=== PATIENT | male | born 1970 | race Caucasian/White ===

== ENCOUNTER 2016-03-22 14:19 | Observation (INO) ==
--- NOTE | 2016-03-22 14:36 | Emergency Department Note ---
Disposition Clinical Impression: Chest pain Qualifiers: Chest pain type: unspecified Qualified Code(s): R07.9 - Chest pain, unspecified Disposition: Admitted As Inpatient Condition: Good Chest Pain HPI - General Chief Complaint: ED Chest Pain Stated Complaint: Chest Pain/Anxiety Time Seen by Provider: 03/22/16 14:25 Source: patient Mode of arrival: ambulatory Limitations: no limitations Vital Signs Reviewed: Yes Nursing Notes Reviewed: Yes - History of Present Illness HPI Narrative: A 45 year old male with a history of type 2 DM, depression/anxiety, and HTN presents to the ED with the chief complaint of chest pain that began Sunday and an anxiety attack that occurred on Sunday. He states that the chest pain is in the center of his chest and radiates down his left arm and that his arm feels weak and shaky. He states that the chest pain gets worse with walking and gets better when he lays down and rests. He states he has some shortness of breath off and on. [facility]: Patient has past medical history of anxiety, panic disorder, hyperlipidemia, obesity, chest pain, obstructive sleep apnea, atypical chest pain, depressive disorder, hypertension, back pain, PTSD. Patient's blood work from 03/22/2016 shows a white blood cell count of 5.6, hemoglobin 15.4, hematocrit 44.4, platelets 176. Electrolytes show sodium of 138. Potassium 3.7. Cl 99. Glucose 313. CO2 26. Creatinine 1.13 with previous creatinine of 1.01 on 06/18. AST 36. ALC 81. Chest x-ray shows no evidence of acute pulmonary/cardiac disease. EKG shows sinus tachycardia with ventricular rate of 104. NE interval 148. QRS 88. QTC 460. Patient has no ST elevations or depressions. Patient has T-wave inversions in V1 and V2. EKG with changes since 11/07/2011. Medications include allopurinol. Lisinopril. Loratadine. Frank. Toprol. Nortriptyline. Omeprazole. Prazosin. - Related Data Home Medications Medication Instructions Recorded Confirmed Allopurinol [Zyloprim 300 MG] 300 mg PO DAILY 03/22/16 03/22/16 Lisinopril [Zestril] 40 mg PO DAILY 03/22/16 03/22/16 Loratadine [Claritin] 10 mg PO DAILY PRN 03/22/16 03/22/16 Metformin [Glucophage] 250 mg PO BID 03/22/16 03/22/16 Metoprolol [Lopressor] 12.5 mg PO BID 03/22/16 03/22/16 Multivitamin-Min/Iron/FA/Vit K 1 each PO DAILY 03/22/16 03/22/16 [Multi-Day Plus Minerals Tablet] Nortriptyline [Pamelor] 10 mg PO HS 03/22/16 03/22/16 Omeprazole [PriLOSEC] 20 mg PO DAILY 03/22/16 03/22/16 Prazosin HCl [Minipress] 10 mg PO HS 03/22/16 03/22/16 Allergies Allergy/AdvReac Type Severity Reaction Status Date / Time No Known Allergies Allergy Verified 03/22/16 15:19 All systems ED: reviewed and negative except as stated. Cardiovascular: Reports: chest pain Psychiatric: Reports: anxiety, depression Physical Exam - General Limitations: no limitations - Head Head exam: atraumatic, normocephalic - Eye Eye exam: Present: normal appearance - ENT ENT exam: normal exam - Neck Neck exam: Present: normal inspection - Chest Chest inspection: Present: normal inspection, symmetric chest wall rise. Absent : tenderness - Respiratory Respiratory exam: Present: normal lung sounds bilaterally. Absent: respiratory distress, wheezes - Cardiovascular Cardiovascular exam: Present: regular rate, normal rhythm - Abdominal Exam Abdominal exam: Present: soft, Non-Tender - Extremities Exam Extremities exam: Present: normal inspection - Expanded Lower Extremity Exam Hip/Pelvis exam: Present: normal inspection - Back Exam Back exam: Present: normal inspection - Neurological Exam Neurological exam: Present: alert, oriented X3 - Psychiatric Psychiatric exam: Present: anxious - Skin Skin exam: Present: warm, dry, intact Course - Consultations Consultation #1: Discussed with hospitalist Dr. Soler. Pt accepted. Vital Signs Temperature 98.7 F 03/22/16 14:22 Pulse Rate 84 03/22/16 14:22 Respiratory Rate 16 03/22/16 14:22 Blood Pressure 139/91 03/22/16 14:22 O2 Sat by Pulse Oximetry 98 03/22/16 14:22 Temperature 97.7 F 03/22/16 17:01 Pulse Rate 78 03/22/16 17:01 Respiratory Rate 16 03/22/16 17:01 Blood Pressure 138/87 03/22/16 17:01 O2 Sat by Pulse Oximetry 96 03/22/16 17:01 Oxygen Delivery Oxygen Delivery Room Air Chest Pain - Medical Records Medical records reviewed: Yes I reviewed the patient's medical records. - Lab Data Lab results reviewed: Yes I reviewed the patient's lab results. - Radiology Data Radiology results reviewed: Yes I reviewed the patient's radiology results. - EKG Data EKG attestation: Yes I reviewed and interpreted this EKG. EKG results narrative: EKG shows sinus rhythm with ventricular rate of 82 bpm. NE interval 164. QRS 98. QTC 404.
--- NOTE | 2016-03-22 18:40 | Emergency Department Note ---
START Narrative - START START: For this encounter, I have reviewed the resident, PERINATAL NURSE, or PA documentation, treatment plan, and medical decision making; and I have had face to face time with this patient. 45-year-old male presents with chest pain from the [place]. They performed an initial evaluation which included an initial negative troponin, chest x-ray negative for acute infiltrate or other acute pathology and an ECG which was negative for STEMI. Patient has multiple risk factors for coronary artery disease. Given ASA at [facility]. Patient will be admitted to the hospital for further care and evaluation of acute chest pain and rule out of ACS. Pt is comfortable with the plan.
[2016-03-22] MEDS ORDERED: *HR* Morphine 2 MG/ML SYRINGE IVP PRN (20:06)
[2016-03-22] MEDS ORDERED: Ondansetron 4 MG/2 ML VIAL IVP PRN (20:06)
[2016-03-22] MEDS ORDERED: Naloxone 0.4 MG/ML INJ IVP PRN (20:06)
[2016-03-22] MEDS ORDERED: Loratadine 10 MG TABLET PO PRN (20:07)
[2016-03-22] MEDS ORDERED: Nitroglycerin 0.4 MG TAB.SUBL SL PRN (20:07)
[2016-03-22] MEDS ORDERED: D5% in Water 1,000 ML IV PRN (20:09)
[2016-03-22] MEDS ORDERED: *HR* Dextrose 50 % in Water (Syg) 50 ML SYRINGE IVP PRN (20:09)
[2016-03-22] MEDS ORDERED: Dextrose Gel 15 GM PO PRN ×2 (20:09)
--- NOTE | 2016-03-22 20:16 | Internal Med History&Physical ---
Date of Encounter: 03/22/16 Time of Encounter: 19:50 Assessment and Plan (1) Chest pain Current visit: Yes Status: Acute -Given cardiac risk factors and typical presentation of chest pain-Will admit to rule out ACS -f/u serial TNI (last TNI from the [facility] at 12:30 was negative), f/u repeat TNI -EKG at 12:18am at the [facility]: Sinus tachycardia with 104bpm, possible left atrial enlargement, inferior infarct of undetermined age -f/u repeat EKG -Nuclear stress test in am -Consider cardiology eval if nuclear test is abnormal -continue ASA, Beta blockers, Statin Qualifiers: Chest pain type: precordial pain Qualified Code(s): R07.2 - Precordial pain (2) Hypertension Current visit: Yes Status: Acute Patient to receive home medications (Metoprolol) Will continue to monitor BP closely continue all home medications Qualifiers: Hypertension type: essential hypertension Qualified Code(s): I10 - Essential (primary) hypertension (3) Diabetes mellitus type 2 in obese Current visit: Yes Status: Chronic -Noted to be [facility]cemic [facility] the [facility] with Blood glucose of 313 -Will repeat FS glucose and continue to closely monitor blood and fingerstick glucose -hold oral antihyperglycemic agents at this time -started low dose sliding scale insulin algorithm (4) Anxiety Current visit: Yes Status: Chronic continue home medications (5) Chronic diarrhea Current visit: Yes Status: Chronic No episodes reported since admission Will continue to monitor Send stool studies if diarrhea occurs (6) DVT prophylaxis Current visit: Yes Status: Acute Heparin SQ (7) Obesity (BMI 30-39.9) Current visit: Yes Status: Chronic Patient reports of making lifestyle modifications and attempting to loose weight Internal Medicine - H&P: HPI Chief complaint: transfer from the [place] for evaluation of chest pain Admitted From: Intrahospital Transfer Plans for Post Hospital Care: Home History of present illness: Mr. Burgess is a 45 year old male with PMH of hypertension, DM type 2, depression/ anxiety/PTSD, and morbid obesity who presented to the [place] for evaluation of chest pain that started on Sunday. Patient was then transferred to [facility] for further evaluation. Patient states he has been having intermittent episodes of substernal chest pain with radiation down to left arm and describes the pain as sharp and pressure like. Reports of having a panic attack last night which worsened his symptoms prompting [facility] today. At this time he is resting in bed and denies any chest pain at this time. Denies headache, sob, chest pain, palpatations, abd pain, n/v, fever, or chills at this time. Patient also reports of having history of chronic diarrhea which has worsened for the last few months.He states he has been trying to loose weight however has lost 8lbs in the last week. Denies any episodes of diarrhea since his hospitalization today. Social Hx: Former smoker FMH: heart disease Past Med Surg Social Fam HX - Past Medical History Medical history: hyperlipidemia, hypertension Psychiatric history: anxiety, panic disorder, PTSD - Social History Smoking Status: Former smoker Smokeless Tobacco Status: No Alcohol use: rarely Drug use: none Internal Medicine - H&P: Meds Allopurinol [Zyloprim 300 MG] 300 mg PO DAILY 03/22/16 [History] Lisinopril [Zestril] 40 mg PO DAILY 03/22/16 [History] Loratadine [Claritin] 10 mg PO DAILY PRN 03/22/16 [History] Metformin [Glucophage] 250 mg PO BID 03/22/16 [History] Metoprolol [Lopressor] 12.5 mg PO BID 03/22/16 [History] Multivitamin-Min/Iron/FA/Vit K [Multi-Day Plus Minerals Tablet] 1 each PO DAILY 03/22/16 [History] Nortriptyline [Pamelor] 10 mg PO HS 03/22/16 [History] Omeprazole [PriLOSEC] 20 mg PO DAILY 03/22/16 [History] Prazosin HCl [Minipress] 10 mg PO HS 03/22/16 [History] Allergies No Known Allergies Allergy (Verified 03/22/16 15:19) All Systems PM: A 10-system review of systems was performed and is negative for pertinent findings except as documented above in the HPI. - Constitutional Constitutional: as per HPI - Constitutional Vitals: Temp Pulse Resp BP Pulse Ox 99.4 F 91 16 158/99 94 L 03/22/16 18:49 03/22/16 18:49 03/22/16 18:49 03/22/16 18:49 03/22/16 18:49 General appearance: Present: cooperative, A&O X 3, morbidly obese, pleasant, no acute distress, answers questions appropriately - Head Head exam: Present: atraumatic, normocephalic - Eye Eye exam: Present: normal appearance, conjuntiva pink, sclera anicteric - Respiratory Respiratory exam: Present: CTAB. Absent: respiratory distress, wheezes - Cardiovascular Cardiovascular exam: Present: RRR, +S1, +S2 - GI/Abdominal GI/Abdominal exam: Present: normal bowel sounds, soft. Absent: distended, tenderness - Extremities Exam Extremities exam: Present: warm, radial pulses palpable and symetrical. Absent : calf tenderness, pedal edema, tenderness - Neurological Exam Neurological exam: Present: alert, oriented X3, no focal deficits - Psychiatric Psychiatric exam: Present: normal affect, normal mood
[2016-03-22 20:56] LABS: Hematocrit 44.9 % (37.5-50.1); Hemoglobin 15.2 g/dL (12.9-16.9); Mean Corpuscular HGB Conc 33.9 g/dL (31.6-35.5); Mean Corpuscular Hemoglobin 28.7 pg (28.0-33.3); Mean Corpuscular Volume 84.7 fL (83.0-100.0); Mean Platelet Volume 12.1 fL (9.4-12.4); Platelet Count 200 K/mcL (140-400); Red Cell Distribution Width 12.7 % (11.5-14.5); Segmented Neutrophils % 49.2 %
[2016-03-22 20:57] LABS: Basophils % 0.7 %; Eosinophils # 0.1 K/mcL (0.0-0.6); Immature Granulocytes % 0.2 % (0-4); Lymphocytes # 2.4 K/mcL (0.6-4.6); Lymphocytes % 40.4 %; Monocytes # 0.5 K/mcL (0.0-1.3); Monocytes % 7.5 %
[2016-03-22] MEDS ORDERED: Insulin LISPRO 300 UNITS/3 ML VIAL SQ SCH (21:00)
[2016-03-22 21:12] LABS: Alanine Aminotransferase 67 Units/L (0-55); Albumin 3.6 g/dL (3.5-5.0); Alkaline Phosphatase 53 Units/L (38-126); Aspartate Amino Transferase 30 Units/L (5-34); BUN/Creatinine Ratio 10 (6-26); Bilirubin,Total 0.3 mg/dL (0.2-1.2); Blood Urea Nitrogen 10 mg/dL (8-26); Calcium 9.2 mg/dL (8.6-10.8); Carbon Dioxide 25 mEq/L (19-29); Chloride 99 mEq/L (98-109); Globulin 3.6 g/dL (2.4-3.5); Glucose 299 mg/dL (70-99); Magnesium 1.6 mg/dL (1.6-2.6); Osmolality,Calculated 296 (280-300); Phosphorous 3.7 mg/dL (2.3-4.7); Sodium 138 mEq/L (136-145); Total Protein 7.2 g/dL (6.0-8.3); eGFR For African Americans > 60 (> 60); eGFR For Non-African Americans > 60 (> 60)
[2016-03-22] MEDS: Aspirin Enteric Coated 81 MG Tablet PO SCH (21:52)
[2016-03-22] MEDS: *HR* Heparin 5,000 UNIT/ML VIAL SQ SCH (23:45)
[2016-03-23 01:52] LABS: Basophils % 0.6 %; Eosinophils # 0.1 K/mcL (0.0-0.6); Eosinophils % 2.1 %; Hemoglobin 14.5 g/dL (12.9-16.9); Immature Granulocytes % 0.2 % (0-4); Lymphocytes # 2.9 K/mcL (0.6-4.6); Lymphocytes % 44.3 %; Mean Corpuscular HGB Conc 34.5 g/dL (31.6-35.5); Mean Corpuscular Hemoglobin 29.2 pg (28.0-33.3); Mean Corpuscular Volume 84.7 fL (83.0-100.0); Monocytes # 0.5 K/mcL (0.0-1.3); Monocytes % 7.1 %; Platelet Count 181 K/mcL (140-400); Red Blood Count 4.96 M/mcL (4.19-5.50); Red Cell Distribution Width 12.6 % (11.5-14.5); Segmented Neutrophils % 45.7 %
[2016-03-23 01:58] LABS: Hemoglobin A1C 10.6 %
[2016-03-23 02:05] LABS: BUN/Creatinine Ratio 11 (6-26); Blood Urea Nitrogen 12 mg/dL (8-26); Calcium 9.1 mg/dL (8.6-10.8); Carbon Dioxide 26 mEq/L (19-29); Chloride 97 mEq/L (98-109); Chol/HDL Ratio 6.6 (0-4.9); Cholesterol 226 mg/dL (< 200); Glucose 314 mg/dL (70-99); HDL Cholesterol 34 mg/dL (40-59); Osmolality,Calculated 294 (280-300); Phosphorous 4.5 mg/dL (2.3-4.7); Potassium 3.8 mEq/L (3.5-4.5); Sodium 136 mEq/L (136-145); Triglycerides 648 mg/dL (< 150); eGFR For African Americans > 60 (> 60); eGFR For Non-African Americans > 60 (> 60)
[2016-03-23] MEDS: *HR* Heparin 5,000 UNIT/ML VIAL SQ SCH ×2 (06:34→15:29)
[2016-03-23] MEDS ORDERED: Regadenoson 0.4 MG/5 ML SYRINGE IVP ONE (07:02)
[2016-03-23] MEDS ORDERED: Multivit/Ca/Min/Fe/FA 1 TAB TABLET PO SCH (09:00)
[2016-03-23] MEDS ORDERED: Lisinopril 20 MG TABLET PO SCH (09:00)
[2016-03-23] MEDS: Insulin LISPRO 300 UNITS/3 ML VIAL SQ SCH ×3 (09:59→15:29)
--- NOTE | 2016-03-23 10:05 | Nuclear Medicine Stress Report ---
Low Level Regadenoson Name: Chato Burgess Date of Study: 03/23/2016 Date: 1970 Ht: 69.0 in Medical Record#: [id number] Age: 45 Wt: 232.0 lb Gender: Male Order #: [id number] Location: [facility] Room: [facility] Supervising Provider: Brigette Figueredo CNP Reading Physician: Pretty Newton DO Ordering Physician: Lisbet Evangelista CNP Primary Care Physician: [facility] Stress Technologist: Paula Morris RN PICU, CCT Interpretative Dancer: Myrna Donohue Indications: Chest Pain Impression: Perfusion imaging was negative for ischemia or infarct. Low level exercise ECG was negative for ischemia. Gated EF = >70%. History: Hypertension Diabetes Hypercholesteremia Stress Test Summary: Stress Test Type: Low level pharmacologic Regadenoson 0.4mg/5ml given IV Baseline Information: Initial Heart Rate: 79 Blood Pressure: 140/90 Stress Information: Stress Time: 4 min 00 sec Test Terminated Due to (primary): As per protocol Maximum Blood Pressure: 140/84 Maximum Heart Rate: 120 Percent Maximum Heart Rate Achieved: 69 Double Product: [id number] METS Reached: 2.1 Symptoms: No chest symptoms Nuclear Summary: SPECT myocardial perfusion imaging using Tc99m Sestamibi given intravenously was performed at rest and following cardiac stress testing. The resting images were obtained following initial dose of 11.5 mCi. Following stress an additional dose of 34.6 mCi was given at peak exercise or 30 seconds post regadenoson infusion. Medication Given: Time Medication Dose Units Route Findings: Stress Note * Resting ECG demonstrated normal sinus rhythm with normal findings. * Low level exercise/ pharmacologic stress ECG is negative for ischemia at level of heart rate achieved. * Patient had no chest pain during stress. * No arrhythmias were noted during stress. Hemodynamic responses * Normal hemodynamic responses to low level exercise plus pharmacologic stress. Study Quality * Study quality is good. Gated EF > 70% * Gated EF > 70%. Left Ventricle * The left ventricle is not dilated. TID * No evidence of transient ischemic dilatation. Lung Uptake * There is no evidence of increase lung uptake. NORMALS * Normal wall motion. * Normal segmental perfusion in stress. * Normal Segmental Perfusion in rest. Updated by Pretty Newton on 03/23/2016 9:47:27 AM electronically signed on 03/23/2016 9:59:32 AM with status of Final
[2016-03-23] MEDS: Aspirin Enteric Coated 81 MG Tablet PO SCH (11:04)
[2016-03-23 15:27] VITALS: BP 163/99
[2016-03-23] MEDS ORDERED: Dextrose Gel 15 GM PO PRN ×2 (15:51)
[2016-03-23] MEDS ORDERED: *HR* Dextrose 50 % in Water (Syg) 50 ML SYRINGE IVP PRN (15:51)
[2016-03-23] MEDS ORDERED: D5% in Water 1,000 ML IV PRN (15:51)
[2016-03-23] MEDS ORDERED: amLODIPine 5 MG TABLET PO SCH (16:00)
[2016-03-23] MEDS ORDERED: Insulin LISPRO 300 UNITS/3 ML VIAL SQ SCH ×2 (16:30→21:00)
[2016-03-23 16:44] LABS: Amylase 25 Units/L (25-125); Lipase 44 Units/L (8-78)
[2016-03-23] MEDS ORDERED: Perflutren Lipid Microsphere 2 ML VIAL ONE (17:17)
--- NOTE | 2016-03-23 17:49 | Discharge Summary ---
Date of Encounter: 03/23/16 Time of Encounter: 16:00 - Discharge Diagnosis (1) Chest pain Priority: Primary Status: Acute Qualifiers: Chest pain type: unspecified Qualified Code(s): R07.9 - Chest pain, unspecified (2) Hypertension Priority: Secondary Status: Chronic Qualifiers: Hypertension type: essential hypertension Qualified Code(s): I10 - Essential (primary) hypertension (3) Anxiety Priority: Secondary Status: Chronic (4) Chronic diarrhea Priority: Secondary Status: Chronic (5) Diabetes mellitus type 2 in obese Priority: Secondary Status: Chronic (6) Obesity (BMI 30-39.9) Priority: Secondary Status: Chronic - Discharge Medications Prescriptions: Amlodipine [Norvasc] 5 mg PO DAILY #30 tablet Aspirin Enteric Coated [Aspirin EC] 81 mg PO DAILY #30 tablet. Atorvastatin [Lipitor] 40 mg PO HS #30 tablet Home Medications: Allopurinol [Zyloprim 300 MG] 300 mg PO DAILY 03/22/16 [History] Lisinopril [Zestril] 40 mg PO DAILY 03/22/16 [History] Loratadine [Claritin] 10 mg PO DAILY PRN 03/22/16 [History] Multivitamin-Min/Iron/FA/Vit K [Multi-Day Plus Minerals Tablet] 1 each PO DAILY 03/22/16 [History] Nortriptyline [Pamelor] 10 mg PO HS 03/22/16 [History] Omeprazole [PriLOSEC] 20 mg PO DAILY 03/22/16 [History] Prazosin HCl [Minipress] 10 mg PO HS 03/22/16 [History] Amlodipine [Norvasc] 5 mg PO DAILY #30 tablet 03/23/16 [Rx] Aspirin Enteric Coated [Aspirin EC] 81 mg PO DAILY #30 tablet. 03/23/16 [Rx] Atorvastatin [Lipitor] 40 mg PO HS #30 tablet 03/23/16 [Rx] Metformin [Glucophage] 500 mg PO BID #0 03/23/16 [Rx] Metoprolol [Lopressor] 25 mg PO BID #60 03/23/16 [Rx] Allergies/Adverse Reactions: Allergies No Known Allergies Allergy (Verified 03/22/16 15:19) Procedures/tests Complete & Pending: Procedures Performed prior 72 hours Category Date Time Status NM beto perf SPECT multi [NM] Routine Exams 03/22/16 20:08 Taken EKG [ECG 12 lead ECG] [ECG] AM 0600 Y 03/23/16 06:00 Ordered EV echocardiogram w enhance Routine Y 03/23/16 20:08 Completed SP pharm nuclear stress Routine Y 03/23/16 07:40 Completed Date of admission: 03/22/16 15:51 Primary care physician: PCP NEGRA Discharging clinician: Poly Green Anticipated date of discharge: 03/23/16 - Patient Status Disposition: Home, Self-Care Condition: Good Functional capacity at discharge: independent ambulation Overall status at discharge: patient is progressing back to baseline - Discharge Instructions Instructions: Chest Pain (DC), Anxiety (DC) Follow Up With: [facility] [Primary Care Provider] - (Please follow up with your primary care provider in 5-7 days. ) Additional Instructions: F/up with Web Marketing Assistant in 2-3 weeks - Diet and Activity Activity: resume usual activities as tolerated (moderate exercise atleast 3-4 times/week) Diet: diabetic diet, low fat, low cholesterol, low salt diet Hospital course: Mr. Burgess is a 45 year old male with history of hypertension, diabetes was admitted with central chest pain. Initial labs, chest x-ray and EKG done in the emergency room showed no acute abnormality. Telemetry monitoring remained uneventful and serial troponins were negative for ACS. Patient underwent nuclear stress test which was negative for acute ischemia/infarct. He underwent echocardiogram, the report of which is pending at the time of this dictation. He remained asymptomatic and hemodynamically stable during this hospitalization. However, he was noted to have uncontrolled diabetes, uncontrolled blood pressure and significantly elevated triglycerides with moderately elevated LDL cholesterol. These were explained to him, lifestyle modifications including weight loss, moderate exercise and dietary changes were discussed with him and he is motivated to implement them. He is noted to be on a very low-dose of metformin at home and this is being increased to 500 mg twice daily at this time. He will discuss with his primary care provider for further before deciding on initiation of insulin. He is also encouraged to follow-up with dietitian as an outpatient and he verbalized understanding. He reports that he was supposed to be on a statin in the past, however it has been several months since he has taken this. He is being discharged with atorvastatin at this time and will follow up with his primary care provider for further changes. His blood pressure is also noted to be fairly controlled, his metoprolol is being increased to 25 mg twice daily with the addition of Norvasc at this time. He is otherwise medically stable for discharge. His plan of care has also been explained to his at bedside. Patient and his family were thankful for the care he received and very happy. - Time Spent with Patient Total time spent providing and/or coordinating discharge services: Greater than 30 minutes (45 min) - Constitutional Vitals: Temp Pulse Resp BP Pulse Ox 97.9 F 77 16 163/99 98 03/23/16 15:26 03/23/16 15:26 03/23/16 15:26 03/23/16 15:26 03/23/16 15:26 General appearance: Present: A&O X 3, obese, answers questions appropriately - Respiratory Respiratory exam: Present: CTAB. Absent: accessory muscle use, rales, rhonchi, wheezes - Cardiovascular Cardiovascular exam: Present: RRR, +S1, +S2. Absent: diastolic murmur, gallop, rubs, systolic murmur
[2016-03-23] MEDS ORDERED: Insulin DETEMIR 100 UNIT/ML X5UNITS SQ SCH (21:00)
--- NOTE | 2016-03-24 10:09 | ECHO - Doppler Report ---
Echo with Imaging Enhancement Agent Name: Chato Burgess Date of Study: 03/23/2016 Date: 1970 Ht: 69.0 in Medical Record#: [id number] Age: 45 Wt: 231.0 lb Gender: Male BSA: 2.2 Order #: [id number] Location: [facility] Room #: [id number] Reading Physician: Elder Owusu DO, MEGAN, AVINASH JACOBO Distribution A Class Lineman: Marva Rodriguez Ordering Physician: Darya Carmichael MD Primary Physician: [facility] Indications: r/o wall motion abnormalities Impressions: LVEF 60-65%. Normal LV chamber size and function. Mild concentric left ventricular hypertrophy. Moderate left ventricular diastolic dysfunction. Normal right ventricular structure and function. Mild mitral regurgitation. No evidence of pulmonary hypertension. Left Ventricular Wall Motion: Rest Echo Findings All wall segments showed normal motion. Findings: Study Quality * Technically adequate exam. ECG Findings * Normal sinus rhythm. Left Ventricle * LVEF 60-65%. * Normal LV chamber size and function. * Mild concentric left ventricular hypertrophy. * Moderate left ventricular diastolic dysfunction. Right Ventricle * Normal right ventricular structure and function. Left Atrium * Mildly dilated left atrium. Right Atrium * Normal right atrial size. Interatrial Septum * Interatrial septum not well evaluated. Aortic Valve * Trileaflet aortic valve with normal function. * No aortic regurgitation. * No aortic stenosis. Mitral Valve * Normal mitral valve structure. * Mild mitral regurgitation. * No mitral stenosis. Tricuspid Valve * Normal tricuspid valve structure and function. * Trace tricuspid regurgitation. * No evidence of pulmonary hypertension. Pulmonic Valve * Normal pulmonic valve structure and function. * Trace pulmonic regurgitation. Aorta * Normally sized aortic root. Pericardium * The pericardium appears normal. IVC * The IVC is not well evaluated. Pulmonary Artery * Normal visualized portions of the main pulmonary artery. History Hypertension Diabetes Hypercholesteremia Family History of CAD Contrast: Definity 1.3 ml in 8.7 ml of saline 3 ml. Measurements: BP: 163/ 99 2D Normal Values RVIDd: 2.80 cm <2.7 cm IVSd: 1.30 cm 0.6 - 1.0 cm LVIDd: 4.00 cm 3.7 - 5.6 cm LVPWd: 1.30 cm 0.6 - 1.1 cm LVIDs: 2.80 cm 1.5 - 3.6 cm AO: 2.60 cm < 4.0 cm LA: 3.70 cm 2.0 - 4.0cm %FS: 30.00 cm >25 % LA volume: 40 Mitral Valve Peak E:.97 m/sec Peak A:.90 m/sec E/A Ratio:1.1 Peak E' Lat Roman:10.3 cm/s Peak E' Med Roman:8.58 cm/s E/E' Lat Ratio:9.4 E/E' Med Ratio:11.3 Tricuspid Valve TV Regurg Peak Grad: 21.00mmHg TV Regurg Peak Roman: 2.27m/sec Updated by Elder Owusu DO, FACDorothy, ODALIS, AVINASH on 03/24/2016 10:01:41 AM electronically signed on 03/24/2016 10:02:44 AM with status of Final Wall Motion Figueroa: 1=Normal, 2=Hypokinesis, 3=Akinesis, 4=Dyskinesis, 5=Aneurysmal, 6=Hyperkinetic, X=Not Visualized (Blank)=Missing
--- NOTE | 2016-03-24 15:28 | Electrocardiograph Report ---
[place] [id number] Test Date: 2016-03-22 Pat Name: Chato Burgess Department: 103 Room: [facility] Gender: M Brine Supervisor: : 1970 Requested By: Devyn Morgan Order Number: [id number] Reading MD: Silvia Gonzalez Measurements Intervals [place] Rate: 82 P: 35 ME: 164 QRS: 6 QRSD: 98 T: 29 QT: 365 QTc: 404 Interpretive Statements SINUS RHYTHM Electronically Signed On 03-24-2016 15:26:35 EST by Silvia Gonzalez
== END 2016-03-23 18:11 | disposition home or self-care (01) ==
LOC: 3BNU 14:19 → EMEROO 14:19 → SUATTDRO 15:51 → 3BNU 16:50
PROVIDERS: ADMIT Internal Medicine; ATTEND Internal Medicine